=== PATIENT | male | born 1965 | race Caucasian/White ===

== ENCOUNTER 2025-04-28 06:13 | Observation (INO) ==
--- NOTE | 2025-04-07 11:43 | PAT Medication Instructions ---
Medication Instructions Date of Service April 07, 2025 Home Medications multivitamin 1 tab PO DAILY omeprazole 20 mg capsule,delayed release 20 mg PO Q2D ibuprofen 200 mg tablet 400 mg PO BID PRN magnesium aspartate-potassium aspartate 250 mg-250 mg capsule 1 cap PO DAILY metformin 500 mg tablet 500 mg PO QPM Continue as directed omeprazole 20 mg capsule,delayed release 20 mg PO Q2D ASK your surgeon for instructions ibuprofen 200 mg tablet 400 mg PO BID PRN DO NOT take the morning of surgery multivitamin 1 tab PO DAILY magnesium aspartate-potassium aspartate 250 mg-250 mg capsule 1 cap PO DAILY Take evening before surgery metformin 500 mg tablet 500 mg PO QPM Other Notes NOTHING TO EAT OR DRINK AFTER MIDNIGHT. If you have any questions please call us at [phone] or [phone] or [phone] or [phone]
--- NOTE | 2025-04-14 10:43 | Anesthesiology Consultation ---
Date of Service April 14, 2025 Assessment & Plan (1) Encounter for pre-operative examination: - check BSG am DOS. - surgeon ordered medical clearance 04/20, [facility] and patient reported [facility] old echocardiogram. Chart Review Chart Review: Pending: Refer to Additional Notes / Consult section and Patient seen in Pre Admission Testing Teaching & Discussion Pre-Anesthesia Teaching/Discussion Notes: Instructed NPO after midnight before surgery, except medications with 15 cc of water. Medication instructions provided according to the PAT guidelines. History Surgery Operation Date: 04/28/25 07:45 Proposed Procedures p C5-C6 Anterior Cervical Discectomy and Fusion - Igor Benitez DO Height/Weight Height: 5 ft 8 in Weight: 96.8 kg Allergies Allergy/AdvReac Type Severity Reaction Status Date / Time No Known Allergies Allergy Verified 04/07/25 10:52 Medications Home Medications Medication Instructions Recorded Confirmed Last Taken multivitamin 1 tab PO DAILY 01/16/21 04/07/25 Unknown omeprazole 20 mg capsule,delayed 20 mg PO Q2D 01/16/21 04/07/25 Unknown release ibuprofen 200 mg tablet 400 mg PO BID PRN Pain 04/07/25 04/07/25 Unknown magnesium aspartate-potassium 1 cap PO DAILY 04/07/25 04/07/25 Unknown aspartate 250 mg-250 mg capsule metformin 500 mg tablet 500 mg PO QPM 04/07/25 04/07/25 Unknown Past Medical History Medical History (Updated 04/14/25 @ 10:46 by Nicky Houser PA-C) Anxiety Cervical radiculopathy Left arm/leg (since Spring 2024) Chronic neck pain Depression GERD (gastroesophageal reflux disease) controlled, stable per pt Hearing loss chronic History of prostate cancer (2021) Hyperlipidemia No current medications - lifestyle changes and dietary changes, PCP monitoring Osteoarthritis Post traumatic stress disorder Pre-diabetes Metformin daily Sleep apnea last sleep study ~2021, unable to tolerate machine (reports he was 300lbs at that time), no formal repeat sleep study since weight loss White coat syndrome with high blood pressure but without hypertension Patient denies h/o stroke, seizures, heart attack, heart failure, blood clots/DVTs or blood transfusions. Exercise / Class Metabolic Activity II 4-5 Yardwork/Stairs/Walk up hill (denies chest discomfort or shortness of breath with one flight of stairs) Past Family History Family History Other No family history of adverse response to anesthesia Past Surgical History Surgical History H/O eye surgery Removed piece of metal from eye (unsure of side) H/O inguinal hernia repair right H/O umbilical hernia repair History of colonoscopy History of robot-assisted laparoscopic radical prostatectomy (2021) History of tonsillectomy Past Anesthesia History No Hx of Anesthesia Complications and No Family Hx of Anesthesia Complications History of PONV No Hx of PONV and No Hx of Motion Sickness Social History Smoking Status: Current every day smoker Smoking cigarettes per day: vapes daily - very occasional (aware of npo policy) Do You Dip or Chew Tobacco: No Hx Alcohol Use: Yes (quit ~2019 - hx of heavy alcohol use) alcohol intake frequency: 3 or more drinks per day Alcohol Intake Frequency Comment: 3-4 drinks a night, quit ~2019 Hx Substance Use: No substance use type: does not use Review of Systems Patient denies chest pain, shortness of breath, dyspnea on exertion, fever, chills, cough, wheezing, or palpitations. Physical Exam Vital Signs Vitals BP 121/82 P 86 TEMP 98.1 SP02 98% on RA RESP 18 Physical Patient resting comfortably in chair in no acute distress, alert and oriented, responding appropriately throughout visit Full cervical extension range of motion without pain TMD 3.5 finger breadths Mallampati Score 3 Dentition: removable partials, denies chipped or loose teeth, caps/crowns, implants or bridges Lungs: normal respiratory effort. Good air movement, clear throughout to a uscultation, no adventitious breath sounds Cardiac: regular rate and rhythm, no murmurs noted Carotid arteries: negative bruit bilat Lab Results Anesthesia Preop Results Results Anesthesia Widget: WBC 6.07 K/ul (4.8-10.8) 04/14/25 Hgb 15.9 g/dl (14.0-18.0) 04/14/25 Hct 46.1 % (42.0-52.0) 04/14/25 Plt 251 K/uL (130-400) 04/14/25 Na 139 mmol/L (136-145) 04/14/25 K 4.1 mmol/L (3.5-5.1) 04/14/25 Cl 105 mmol/L (98-107) 04/14/25 CO2 25 mmol/L (21-32) 04/14/25 BUN 15 mg/dl (6-23) 04/14/25 Creat 0.84 mg/dl (0.6-1.4) 04/14/25 Glucose Level 99 mg/dl (70-99(Fasting)) 04/14/25 PT 10.7 Seconds (9.0-12.0) 04/14/25 PTT 29 Seconds (21-31) 04/14/25 INR 1.0 (0.9-1.1) 04/14/25 HA1c 5.9 % (4.5-5.6) H 04/14/25 Urine Color Yellow 04/14/25 Urine Appearance Clear (Clear) 04/14/25 Urine pH 7.5 (4.5-7.5) 04/14/25 Urine Specific [place] 1.003 (1.000-1.030) 04/14/25 Urine Protein Negative (Negative) 04/14/25 Urine Glucose (UA) Negative (Negative) 04/14/25 Urine Ketones Negative (Negative) 04/14/25 Urine Blood Negative (Negative) 04/14/25 Urine Nitrite Negative (Negative) 04/14/25 Urine Bilirubin Negative (Negative) 04/14/25 Urine Urobilinogen Negative (Negative) 04/14/25 Urine Leukocyte Esterase Negative (Negative) 04/14/25 Blood Type O Positive 04/14/25 Antibody Screen NEGATIVE 04/14/25 Testing Electrocardiogram Date: 04/14/25 NSR, rate 75 bpm Rightward axis Other Testing Lung CT 03/14/25 Mild emphysema Severe coronary artery calcifications Stable small cyst at the liver Mild thoracic spine degenerative changes
[2025-04-28] MEDS: LR 15ML/HR IV SCH (06:56)
[2025-04-28] MEDS: LR 60ML/HR IV SCH (06:56)
[2025-04-28] MEDS: GABAPENTIN 600 MG DOSE PO SCH (06:57)
[2025-04-28] MEDS: ACETAMINOPHEN 500 MG TAB PO SCH (06:57)
[2025-04-28] MEDS: CeleBREX 200 MG CAP PO SCH (06:57)
[2025-04-28] MEDS ORDERED: ROCURONIUM BROMIDE 10 MG/ML 5 ML VIAL IV ONE ×2 (07:03→07:53)
[2025-04-28] MEDS ORDERED: MIDAZOLAM HCL 1 MG/ML 2ML VIAL ONE (07:03)
[2025-04-28] MEDS ORDERED: LIDOCAINE 2% 2 ML VIAL/AMP(20MG/ML) INFIL ONE (07:03)
[2025-04-28] MEDS ORDERED: PROPOFOL IV EMULSION 10 MG/ML 20 ML VIAL IV ONE (07:03)
[2025-04-28] MEDS ORDERED: ONDANSETRON INJ 2 MG/ML 2 ML VIAL ONE (07:05)
[2025-04-28] MEDS ORDERED: DEXAMETHASONE SOD INJ 4 MG/ML VIAL ONE ×2 (07:05→08:28)
[2025-04-28] MEDS ORDERED: DROPERIDOL 5 MG/2 ML VIAL IV PRN (07:23)
[2025-04-28] MEDS ORDERED: ATROPINE SULFATE 0.1 MG/ML 10ML SYR IV PRN (07:23)
--- NOTE | 2025-04-28 07:40 | History & Physical Bridge Note ---
Date of Service April 28, 2025 History & Physical Bridge Note I have examined the patient, reviewed the History & Physical and in the interval since the performance of the History & Physical I have noted the following changes of clinical significance: no changes noted
--- NOTE | 2025-04-28 07:41 | History & Physical Report ---
Date of Service April 28, 2025 Assessment & Plan (1) Herniation of cervical intervertebral disc with radiculopathy: Plan: Anterior cervical discectomy and fusion C5-C6 History of Present Illness Chief Complaint: Neck and arm pain Primary Care Provider: Ghulam Cameron MD This is a 5-year-old male who presents chronic persistent neck and arm pain and failing course of nonoperative care is here for surgical invention. Allergies Allergy/AdvReac Type Severity Reaction Status Date / Time No Known Allergies Allergy Verified 04/28/25 06:38 Home Medications Medication Instructions Recorded Confirmed Type multivitamin 1 tab PO DAILY 01/16/21 04/28/25 History omeprazole 20 mg capsule,delayed 20 mg PO Q2D 01/16/21 04/28/25 History release ibuprofen 200 mg tablet 400 mg PO BID PRN Pain 04/07/25 04/28/25 History magnesium aspartate-potassium 1 cap PO DAILY 04/07/25 04/28/25 History aspartate 250 mg-250 mg capsule metformin 500 mg tablet 500 mg PO QPM 04/07/25 04/28/25 History Past Med/Surg History Problem List (Updated 04/28/25 @ 07:40 by Igor Benitez DO) Herniation of cervical intervertebral disc with radiculopathy Encounter for pre-operative examination [facility] arthritis Medical History (Updated 04/28/25 @ 07:40 by Igor Benitez DO) Hearing loss chronic White coat syndrome with high blood pressure but without hypertension Cervical radiculopathy Left arm/leg (since Spring 2024) Chronic neck pain Osteoarthritis GERD (gastroesophageal reflux disease) controlled, stable per pt History of prostate cancer (2021) Depression Anxiety Post traumatic stress disorder Sleep apnea last sleep study ~2021, unable to tolerate machine (reports he was 300lbs at that time), no formal repeat sleep study since weight loss Pre-diabetes Metformin daily Hyperlipidemia No current medications - lifestyle changes and dietary changes, PCP monitoring Surgical History H/O inguinal hernia repair right H/O umbilical hernia repair History of colonoscopy History of robot-assisted laparoscopic radical prostatectomy (2021) H/O eye surgery Removed piece of metal from eye (unsure of side) History of tonsillectomy Family History Other No family history of adverse response to anesthesia Social History Smoking Status: Current every day smoker Tobacco Type: E-cigarettes / Vaping Cigarettes Per Day: vapes daily - very occasional (aware of npo policy); Second Hand Exposure: No; Do You Dip or Chew Tobacco: No; Tobacco Cessation Education Requested by Patient: No Hx Alcohol Use: Yes (quit ~2019 - hx of heavy alcohol use) Hx Substance Use: No Preferred Language: Turkmen Communication Ability: Effective Technical Recruiter Required: No Beliefs That Will Affect Care: None Current Living Situation: Alone Other Information That Helps Us Care for You: No Feels Safe at Home: Yes Safety Concerns: Feels Safe At This Time Assistive Devices: Denture - Upper and Denture - Lower Assistive Devices Comment: upper and lower partials Physical Exam Physical Exam: Patient is alert and oriented Heart regular rhythm Lungs clear Results & Data Results & Data Vital Signs (Past 12 Hours) Vital Signs Temp Pulse Resp BP Pulse Ox O2 Del Method 04/28/25 06:39 36.9 C 80 20 164/94 H 98 Room Air
[2025-04-28] MEDS: ceFAZolin 330 MG/ML 1 GM VIAL ONE (08:57)
[2025-04-28] MEDS: FLOSEAL HEMOSTATIC MATRIX 10ML TOP ONE (08:58)
[2025-04-28] MEDS ORDERED: PHENYLEPHRINE 100MCG/ML 5ML SYR ONE (08:59)
[2025-04-28] MEDS ORDERED: SODIUM CHLORIDE 0.9% PF INJ 10 ML VIAL ONE (09:01)
[2025-04-28] MEDS ORDERED: SUGAMMADEX SODIUM 200 MG/2 ML VIAL IV ONE (09:05)
--- NOTE | 2025-04-28 09:07 | Operative Report ---
Post Operative Report Pre & Post Diagnosis Operation Date: 04/28/25 07:45 Pre-Op Diagnosis: Cervical spondylosis with radiculopathy Post-Op Diagnosis: Same I identified the patient and participated in the time-out.: Yes Procedure Operation Date: 04/28/25 07:45 Actual Procedures #1 anterior cervical discectomy with bilateral foraminotomies C5-C6. #2 ant erior cervical arthrodesis C5-C6. #3 placement Spira 8 mm cage filled with os design bone graft C5-C6. #4 application of cage completed screws across C5-C6. Surgeon Igor Benitez, DO Special Librarian Ghulam Blandon Estimated Blood Loss 10 Findings Consistent with Post-Op Diagnosis Specimens None Indications This is a 59-year-old male presents by much diagnosis after failing course of nonoperative care is here for surgical intervention. Description of Procedure Patient was met with identified informed consent obtained. Patient was then taken to the operative suite underwent intubation placed in spine position on the [place] table with a head [employer] head cook. All bony promises well- padded eyes inspected to ensure no external pressure placed upon them. This point the anterior cervical spine was prepped and draped in normal sterile fashion. The assistance of fluoroscopy identified the C5-6 disc base. A transv erse incision was placed on the right anterior aspect of the cervical spine overlying his region. Blunt dissection with assistance of bipolar electrocautery was performed onto exposing the anterior cervical spine at C5-C6. Self-retaining retractors placed. I then performed a complete discectomy of C5-C6 out to the uncovertebral joints bilaterally. [place] distracting pins were utilized to assist in visualization. Removed all posterior annular fibers longitudinal ligament bilateral foraminotomies performed. Endplates burred to subcortical mean bone and an 8 mm spiral cage filled with os design bone graft tapped in position. Distracting apparatus was removed. All anterior osteophytes burred to a smooth cortical surface and a K2 and plate screws applied with the assistance of fluoroscopy. Incision was then copiously irrigated explored to ensure no damage to surrounding structures remaining bleeding. 10 round JOSE drain inserted. The incision was then closed with 2 Vicryl in the fascia and 4 Monocryl for final skin closure. Steri-Strips and sterile dressing placed. Patient waken taken to PACU in stable condition. Please note Ghulam Sanchez was present out the entire procedure and on the patient positioning complex portion of the surgery and final skin closure. I attest to the content of the Intraoperative Record and any orders documented therein. Any exceptions are noted below.
[2025-04-28] MEDS: HYDROmorphone INJ 2 MG/ML SYR/VIAL IV PRN (09:25)
[2025-04-28] MEDS ORDERED: KETAMINE HCL 10MG/ML SYR ONE (09:28)
--- NOTE | 2025-04-28 09:30 | Fluoroscopy Report ---
FL cervical 2-3V CLINICAL HISTORY: C5-C6 ACDF COMPARISON STUDY: None FLUOROSCOPY TIME: 9 seconds FLUOROSCOPY IMAGES: 3 EXPOSURE DOSE: 1 mGy FINDINGS: Fluoroscopy was provided for anterior metallic fusion at C5-6. IMPRESSION: Intraoperative fluoroscopy. ACT 112: Negative or not required by law. Electronically signed by: Sebastián Matamoros M.D. 04/28/2025 9:28 AM
[2025-04-28] MEDS: HYDROmorphone INJ 1 MG/ML SYRINGE ONE (09:54)
[2025-04-28] MEDS: HYDROmorphone INJ 1 MG/ML SYRINGE IV SCH (09:54)
--- NOTE | 2025-04-28 11:58 | Anesthesiology Progress Note ---
Date of Service April 28, 2025 Anesthesia Post Procedure Vital Signs Vital Signs: Temp Pulse Resp BP BP Pulse Ox O2 Del Method 04/28/25 11:30 75 12 120/75 97 Nasal Cannula 04/28/25 11:15 77 12 114/69 95 Nasal Cannula 04/28/25 11:00 70 12 106/68 95 Nasal Cannula 04/28/25 10:45 74 12 116/76 96 Nasal Cannula 04/28/25 10:30 36.5 C 67 14 119/75 96 Nasal Cannula 04/28/25 10:20 65 15 133/86 97 Nasal Cannula 04/28/25 10:10 69 16 127/84 97 Nasal Cannula 04/28/25 10:00 65 12 123/86 99 Nasal Cannula 04/28/25 09:50 65 12 136/88 99 Nasal Cannula 04/28/25 09:40 67 12 130/80 100 Nasal Cannula 04/28/25 09:30 75 12 137/80 100 Nasal Cannula 04/28/25 09:21 36.1 C L 87 12 132/79 100 Nasal Cannula 04/28/25 06:39 36.9 C 80 20 164/94 H 98 Room Air O2 Flow Rate 04/28/25 11:30 2 04/28/25 11:15 2 04/28/25 11:00 2 04/28/25 10:45 2 04/28/25 10:30 2 04/28/25 10:20 2 04/28/25 10:10 2 04/28/25 10:00 2 04/28/25 09:50 2 04/28/25 09:40 3 04/28/25 09:30 3 04/28/25 09:21 3 04/28/25 06:39 Pain Intensity Neck: Pain Intensity: 4 Transfer of Care Handoff Completed per policy Notes Mental Status: alert / awake / arousable Patient Amnestic to Procedure: Yes Nausea / Vomiting: adequately controlled Pain: adequately controlled Airway Patency, RR, SpO2: stable & adequate BP & HR: stable & adequate Hydration State: stable & adequate Anesthetic Complications: no major complications apparent
[2025-04-28] MEDS ORDERED: METOCLOPRAMIDE HCL INJ 5 MG/ML 2 ML VIAL IV PRN (12:19)
[2025-04-28] MEDS ORDERED: PHARMACY GLYCEMIC MGMT CONSULT PRN (12:19)
[2025-04-28] MEDS ORDERED: ONDANSETRON 4 MG OD TAB PO PRN (12:19)
[2025-04-28] MEDS ORDERED: ALUMINUM/MAGNESIUM SUSP 30 ML UDC PO PRN (12:19)
[2025-04-28] MEDS ORDERED: diphenhydrAMINE Capsule 25 MG CAP PO PRN (12:19)
[2025-04-28] MEDS ORDERED: SOD PHOSPHATE/SOD BIPHOSPHATE ENEMA 132 ML BTL PR PRN (12:19)
[2025-04-28] MEDS ORDERED: NALOXONE HCL 0.4 MG/1 ML VIAL/CARP IV PRN (12:19)
[2025-04-28] MEDS ORDERED: HYDROmorphone INJ 0.5 MG/0.5 ML SYR IV PRN (12:19)
[2025-04-28] MEDS ORDERED: DO NOT ADMINISTER PNEUMOCOCCAL VACCINE PRN (12:19)
[2025-04-28] MEDS ORDERED: HYDROmorphone INJ 1 MG/ML SYRINGE IV PRN (12:19)
[2025-04-28] MEDS ORDERED: DO NOT ADMINISTER FLU VACCINE PRN (12:19)
[2025-04-28] MEDS ORDERED: ACETAMINOPHEN 1,000 MG/100 ML VIAL IV PRN (12:19)
[2025-04-28] MEDS ORDERED: MAGNESIUM HYDROXIDE SUSP 30 ML UDC PO PRN (12:19)
[2025-04-28] MEDS ORDERED: PROMETHAZINE 12.5 MG/50.5 ML BAG IV PRN (12:19)
[2025-04-28] MEDS ORDERED: LORazepam 0.5 MG TAB PO PRN (12:19)
[2025-04-28] MEDS ORDERED: ONDANSETRON INJ 2 MG/ML 2 ML VIAL IV PRN (12:19)
[2025-04-28] MEDS ORDERED: FAMOTIDINE 20 MG TAB PO PRN (12:19)
[2025-04-28] MEDS ORDERED: dexAMETHasone 8 MG in SYRINGE 0 ML IV PRN (12:19)
[2025-04-28] MEDS ORDERED: RACEPINEPHRINE 2.25% NEBU SOLN 0.5 ML VIAL INH PRN (12:19)
--- NOTE | 2025-04-28 12:28 | Pharmacy Report ---
Pharmacy Glycemic Short Note 2 - Date of Service April 28, 2025 - Glycemic Short BSG Results (Last 24 hours): 04/28/25 04/28/25 06:37 09:23 POC Glucose 94 112 H OUTPATIENT ANTIDIABETIC REGIMEN: * metformin 500 mg daily ASSESSMENT: * 59 year old s/p procedure, POD 0 - pharmacy consulted for glycemic management. Patient only on metformin outpatient with excellent A1c. Did receive IV dexamethasone intraoperatively, and also continued daily tomorrow. Plan to start novolog SSI now. Potentially consider adding on basal insulin if BSGs trending upward with steroids. PLAN FOR INPATIENT GLYCEMIC CONTROL: * Hold outpatient oral diabetes medications * Basal insulin * Lantus - hold * Bolus insulin * NovoLog per scale ACHS or Q6hrs while NPO * Goal Range: Low 110 mg/dL - High 140 mg/dL * Correction Factor: 25 mg/dL/unit * Nutritional / Prandial insulin per carb ratio of 1 unit per 8 grams CHO consumed
[2025-04-28] MEDS: LACTATED RINGER'S 1,000 ML IV SCH (12:33)
[2025-04-28] MEDS ORDERED: CARBOHYDRATES FOR HYPOGLYCEMIA PO PRN (12:45)
[2025-04-28] MEDS ORDERED: GLUCOSE 10 TAB/TUBE PO PRN (12:45)
[2025-04-28] MEDS ORDERED: DEXTROSE 50% 50 ML SYRINGE IV PRN (12:45)
[2025-04-28] MEDS ORDERED: GLUCAGON FOR INJ 1 MG VIAL SQ PRN (12:45)
[2025-04-28] MEDS ORDERED: GLUCOSE 40% GEL 15 GM TUBE PO PRN (12:45)
[2025-04-28] MEDS: INSULIN ASPART PER UNIT CHARGE SC SCH (14:02)
[2025-04-28] MEDS: ACETAMINOPHEN 500 MG TAB PO PRN (14:30)
[2025-04-28] MEDS: DOCUSATE SODIUM/SENNA 50/8.6MG TAB PO SCH (20:14)
[2025-04-29] MEDS: POLYETHYLENE (MIRALAX) 17 GM PACK PO SCH (06:03)
[2025-04-29] MEDS: dexAMETHasone 6 MG in SYRINGE 0 ML IV SCH (08:04)
[2025-04-29] MEDS: MULTIVITAMIN TAB PO SCH (08:04)
--- NOTE | 2025-04-29 08:29 | Discharge Summary ---
Date of Service April 29, 2025 Admission HPI Per Admitting Provider This is a 59-year-old male who presents chronic persistent neck and arm pain and failing course of nonoperative care is here for surgical invention. Admission Exam (Per Admitting) Constitutional WD/WN, vitals as above Eyes normal visual alex by confrontation ENMT external ear and nose normal, oropharynx normal Neck normal visual inspection Respiratory normal respiratory effort Cardiovascular Extremities: normal capillary refill Gastrointestinal (Abdomen) Inspection/Auscultation: abdomen normal to inspection Musculoskeletal Head/Neck/Chest: + limited ROM of neck Extremities: extremities normal to inspection and + abnormal strength Gait: normal gait Skin no rashes, warm and dry Neurologic normal touch/pain/proprioception, moves all extremities and + focal motor deficit Psychiatric A+Ox3, euthymic affect Eye Contact: good eye contact Discharge Data Procedures Performed Operation Date: 04/28/25 07:45 Actual Procedures p C5-C6 Anterior Cervical Discectomy and Fusion - Igor Benitez DO Hospital Course (1) Herniation of cervical intervertebral disc with radiculopathy: Fausto is being discharged home on postoperative day 1 status post ACDF C5-6. Neck pain and left upper extremity has resolved. Still has considerable weakness involving his left upper extremity. He is voiding without issue. No significant dysphagia or dysphonia. JOSE drain output is 2 cc last shift Discharge Instructions ACTIVITY RECOMMENDATIONS: SELF CARE INSTRUCTIONS AFTER CERVICAL FUSIONS 1. No smoking. Smoking drastically decreases the chance of a solid fusion. 2. No bending, lifting more than 5 pounds, or twisting (roll like a log when turning in bed). 3. You may shower 3 days after surgery. Thoroughly dry wound. Do not soak in the tub. 4. Cervical collar: Must be worn at all times including sleeping. You may remove the brace only to bath, eat and if you are sitting in a recliner. 5. Please walk as much as you can for exercise. Gradually increase the distance that you walk as your endurance increases. 6. You may return to previous diet. SPECIAL CARE INSTRUCTIONS: VERY IMPORTANT TO READ AND REVIEW A. Do not take any anti-inflammatory medications (i.e. Indocin, Advil, Aspirin, Naprosyn, Aleve, Motrin, etc.) as these may inhibit the chance of a solid fusion. Tylenol is okay to take. B. Your surgical incision has been closed with a cosmetic suture under the skin that will dissolve in about 6 weeks. In 14 days, you can use a pair of clean scissors and cut the suture that is left outside of the skin at the ends of your incision. C. Complications are uncommon, but please contact us if you have any signs or symptoms of: 1. wound infection (fever higher than 102.5 degrees F, redness, separation of wound, drainage, or increasing pain from the incision) 2. blood clots in legs (pain, swelling, redness and warmth in legs) 3. urinary tract infection (fever higher than 102.5 degrees, burning upon urination or increased frequency of urination) 4. nerve problems (inability to walk on your toes or heels, numbness, loss of bowel or bladder control) 5. any other symptoms that concern you. D. Please call the office at if you have any concerns or questions about your operation or recovery. MANAGING PAIN AFTER SPINAL SURGERY 1. Narcotic medication is intended for short-term use and will be provided for surgical pain. Surgical pain usually lasts for a period of 4-6 weeks. Narcotic medication includes Percocet, Vicodin, Darvocet, Tylenol #3 or Lortab. 2. Longer-term pain is more appropriately treated with non-narcotic medication such as Tylenol ES. 3. Muscle spasm is not appropriately treated with narcotics. Muscle relaxers such as Soma, Flexeril or Skelaxin can be used along with Tylenol ES. 4. Remember that we all live with some "aches and pains". This is not unusual or uncommon after an injury or as we get older. 5. We will provide appropriate medication within the normal guidelines of their prescribed use. We will also be very cautious and aware of potential abuse and extended duration of patients' medication needs. 6. Please allow 2-3 days to process refills. Prescriptions will not be mailed but must be picked up at the office. FOLLOW UP VISIT: Keep your scheduled follow-up appointment. Any questions, please call the office at .
[2025-04-29] MEDS ORDERED: NON-FORMULARY MEDICATION (Magnesium, Potassium Aspartate 250-250 mg Capsule) PO SCH (09:00)
[2025-04-29 09:36] VITALS: BP 147/83; PULSE 78; RESP 17; TEMP 98.1; O2SAT 96
== END 2025-04-29 10:23 | disposition home or self-care (01) ==
LOC: ASU 06:13 → PACUINP 06:13 → 3E 12:14